=== PATIENT | female | born 1935 | race Caucasian/White ===

== ENCOUNTER → 2020-12-12 | Outpatient (CLI) | payer MEDICARE | LOC: HEART 5 09:57 | DX: R53.83 Other fatigue (principal); R60.9 Edema, unspecified; I11.9 Hypertensive heart disease without heart failure; I27.20 Pulmonary hypertension, unspecified; I08.3 Combined rheumatic disorders of mitral, aortic and tricuspid valves | CPT/HCPCS: 93306 ==

== ENCOUNTER → 2021-09-28 | Outpatient (CLI) | payer MEDICARE | LOC: RAD 11:51 | DX: R10.9 Unspecified abdominal pain (principal); M25.562 Pain in left knee; M25.561 Pain in right knee; M17.0 Bilateral primary osteoarthritis of knee; R93.3 Abnormal findings on diagnostic imaging of other parts of digestive tract | CPT/HCPCS: 73564; 74018 ==